=== PATIENT | male | born 1955 | race African-American/Black ===

== ENCOUNTER 2018-11-12 19:49 | Emergency (ER) | payer OTHER ==
[~2018-11-12] VITALS: Ht 180.3 cm; Wt 122.5 kg
[2018-11-12] MEDS ORDERED: KEFLEX500 M1 PO (22:41)
[2018-11-12] MEDS ORDERED: NAPROSYN500 MG PO (22:41)
[2018-11-12 23:01] VITALS: BP 167/94
== END 2018-11-12 23:02 | disposition home or self-care (01) ==
LOC: ER 19:49
DX: L72.3 Sebaceous cyst (principal); L03.114 Cellulitis of left upper limb

== ENCOUNTER 2021-04-18 15:51 | Emergency (ER) | payer OTHER ==
[~2021-04-18] VITALS: Ht 180.3 cm; Wt 115.7 kg
[~2021-04-18 15:51] MED LIST: KEFLEX500 M1 PO; NAPROSYN500 MG PO
[2021-04-18 18:35] VITALS: BP 119/74
[2021-04-18] MEDS ORDERED: DOXYCYCLINE 10100 MG PO (18:37)
== END 2021-04-18 18:39 | disposition home or self-care (01) ==
LOC: ER 15:51
DX: L02.414 Cutaneous abscess of left upper limb (principal); Z79.1 Long term (current) use of non-steroidal anti-inflammatories (NSAID); Z79.899 Other long term (current) drug therapy